=== PATIENT | female | born 1995 | race Caucasian/White ===

== ENCOUNTER 2020-07-10 08:26 | Emergency (ER) | payer BC ==
[2020-07-10] MEDS ORDERED: HYDROmorphone 0.5 MG/0.5 ML Syringe IVPUSH ONE (09:31)
[2020-07-10] MEDS ORDERED: Ondansetron 4 MG/2 ML SDV IVPUSH ONE (09:31)
[2020-07-10] MEDS ORDERED: Sodium Chloride 0.9% 10 ML Syringe FLUSH PRN (09:31)
--- NOTE | 2020-07-10 09:33 | EDM.PDOC ---
ED HPI GENERAL MEDICAL PROBLEM - General Chief Complaint: Abdominal Pain Stated Complaint: ABDOMINAL AND BACK PAIN Time Seen by Provider: 07/10/20 09:30 Source of Information: Reports: Patient History Limitations: Reports: No Limitations - History of Present Illness INITIAL COMMENTS - FREE TEXT/NARRATIVE: 25-year-old female evaluated in the ED in regards to gradually worsening low back pain for the last 6 or 8 months. No known injuries. Pain is constant and not improved at all with Tylenol or Motrin. 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 She was identified as having a urinary tract infection but pelvic ultrasound revealed normal placement of her IUD and a very small cyst in the le ft ovary. FOSTER CARE CASE MANAGER did not feel that her gynecological organs were causing any of her low back pain. Currently pain is rating down both buttocks into the posterior legs but not necessarily below the knees. She will occasionally get transient numbness or tingling in her feet but again lasts only 20 to 30 seconds. Pain is worse with standing fully erect. Again no known injuries at any time in her lifetime. Onset: Gradual, Other Duration: Chronic (Gradually worsening pain in lower back for about 6 to 8 months.), Getting Worse Location: Reports: Back Quality: Reports: Ache, Pressure, Throbbing Severity: Moderate Improves with: Reports: Rest (7-8 out of 10.) Worsens with: Reports: Other Context: Denies: Activity, Exercise (Worse with walking and standing in 1 position for too long.), Lifting, Sick Contact, Trauma, Other Associated Symptoms: Denies: No Other Symptoms, Confusion, Chest Pain, Cough, cough w sputum, Diaphoresis, Fever/Chills, Headaches, Loss of Appetite, Malaise, Nausea/Vomiting, Rash, Seizure, Shortness of Breath, Syncope, Weakness Treatments DYE MAKER: Reports: Acetaminophen, NSAIDS (Ultram.) Abdomen Pain Score (Numeric/FACES): 4 Lower Back Pain Score (Numeric/FACES): 9 - Related Data Allergies Allergy/AdvReac Type Severity Reaction Status Date / Time No Known Allergies Allergy Verified 07/10/20 08:37 Home Meds: Home Meds Diclofenac Sodium [Voltaren] 75 mg PO BIDMEALS #16 tab.cr 07/10/20 [Rx] oxyCODONE HCl/Acetaminophen [Percocet 5-325 mg Tablet] 1 each PO Q6H PRN #12 tablet 07/10/20 [Rx] predniSONE [Prednisone] 20 mg PO ASDIRECTED #18 tablet 07/10/20 [Rx] Past Medical History Other FOSTER C[employer] CASE MANAGER History: ovarian cyst removed in 2017 Social & Family History - Tobacco Use Tobacco Use Status *Q: Never Tobacco User - Caffeine Use Caffeine Use: Reports: Coffee, Soda - Recreational Drug Use Recreational Drug Use: No - Living Situation & Occupation Living situation: Reports: Occupation: Employed Social History Comment: 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 She recognizes that her low back pain and SI joint pain has certainly worsened since she took on this job. ED ROS GENERAL - Review of Systems Review Of Systems: See Below Constitutional: Denies: Fever, Chills, Malaise, Weakness, Fatigue, Decreased Appetite, Weight Loss HEENT: Reports: No Symptoms Respiratory: Reports: No Symptoms Cardiovascular: Reports: No Symptoms Endocrine: Reports: Fatigue GI/Abdominal: Reports: Constipation (Occasional problems with constipation but lately bowels been working good.) : Reports: Frequency, Urgency, Other (Received a IM injection yesterday for urinary tract infection and is prescribed antibiotics for UTI.) Musculoskeletal: Reports: Back Pain Skin: Reports: No Symptoms (Use low lumbar back pain.) Neurological: Reports: No Symptoms Psychiatric: Reports: No Symptoms Hematologic/Lymphatic: Reports: No Symptoms Immunologic: Reports: No Symptoms ED EXAM,LOWER BACK PAIN/INJURY - Physical Exam Exam: See Below Exam Limited By: No Limitations General Appearance: Alert, WD/WN, Mild Distress, Other (Temperature is 36.3 with a heart rate of 92 and sinus respiratory Extina with O2 sats of 100% room air BP 115/58.) Eye Exam: Bilateral Eye: Normal Inspection (No scleral icterus or blepharal pallor.), PERRL GI/Abdominal: Normal Bowel Sounds, Soft, Non-Tender, No Organomegaly, No Distention, No Abnormal Bruit, No Mass, Pelvis Stable Back Exam: Other (Patient does have scoliosis of her spine. The thoracic curvature is concave to the left and the compensatory curve in the lumbar spine is concave to the right. Estimation of less than 15 degrees. She has severe pain on palpation of both sacroiliac joints) Extremities: Normal Inspection, Normal Range of Motion, Non-Tender, No Pedal Edema Neurological: Alert, Normal Mood/Affect, Normal Dorsiflexion, CN II-XII Intact, Normal Plantar Flexion, Normal Reflexes, No Motor/Sensory Deficits, Oriented x 3. No: Normal Gait DTR - Lower Extremities: 2+: Knee (R), Knee (L) Course - Vital Signs Last Recorded V/S: Last Vital Signs Temp 36.3 C 07/10/20 08:38 Pulse 85 07/10/20 10:08 Resp 16 07/10/20 08:38 BP 106/61 07/10/20 10:08 Pulse Ox 99 07/10/20 10:08 - Orders/Labs/Meds Orders: Active Orders 24 hr Category Date Time Status Peripheral IV Care [RC] . DIRECTED Care 07/10/20 09:31 Active Sodium Chloride 0.9% [Saline Flush] Med 07/10/20 09:31 Active 10 ml FLUSH ASDIRECTED PRN Peripheral IV Insertion Adult [OM.PC] Stat Oth 07/10/20 09:31 Ordered Medication Orders Sodium Chloride (Saline Flush) 10 ml FLUSH ASDIRECTED PRN PRN Reason: Keep Vein Open Last Admin: 07/10/20 10:02 Dose: 10 ml Documented by: GWEN Meds: Medications Generic Name Dose Route Start Last Admin Trade Name Freq PRN Reason Stop Dose Admin Sodium Chloride 10 ml 07/10/20 09:31 07/10/20 10:02 Saline Flush FLUSH 10 ml ASDIRECTED PRN Administration Keep Vein Open Discontinued Medications Generic Name Dose Route Start Last Admin Trade Name Freq PRN Reason Stop Dose Admin Hydromorphone HCl 0.5 mg 07/10/20 09:31 07/10/20 09:59 Dilaudid IVPUSH 07/10/20 09:32 0.5 mg ONETIME ONE Administration Ondansetron HCl 4 mg 07/10/20 09:31 07/10/20 09:59 Zofran IVPUSH 07/10/20 09:32 4 mg ONETIME ONE Administration - Radiology Interpretation Free Text/Narrative:: 25-year-old female presents to the ED for evaluation of gradually worsening lumbar spine pain over the last 6 to 8 months. No known injuries. Examination reveals no paraspinal muscle spasm. She has a compensatory curve in her spine from scoliosis concave to the right. Severe pain on palpation of both SI joints superiorly. Benign abdominal exam. Plan CT of the lumbar spine to be obtained. IV will be started and she will be given Dilaudid 0.5 mg IV with Zofran 4 mg IV for acute pain relief - Re-Assessments/Exams Free Text/Narrative Re-Assessment/Exam: 07/10/20 10:42 CT scan of her bar spine is now been performed without contrast. Images at T12-L1 level revealed a posterior disc preserved no central canal stenosis or neuroforaminal stenosis is seen. Similar findings were identified at the L1-2 level, L2-L3 level. At the L3-4 level mild diffuse posterior disc bulge is seen. No central canal stenosis or neuroforaminal stenosis is seen. At the L4-5 level very slight diffuse posterior disc bulge is noted. Neuroforamina are patent where the nerve roots exit. No central canal stenosis is appreciated. At the L5-S1 level physiologic posterior disc bulge is noted. No central canal stenosis or neuroforaminal stenosis is seen. No acute fractures appreciated. No abnormal subluxation is appreciated slight scoliosis is noted on the AP reconstructed views. Ununited transverse processes are noted at the L1 level which are believed to be a normal variant. 07/10/20 11:07 I have discussed the findings with the patient and advised that there are no obvious congenital abnormalities or herniated disks in her back to account for her current pain syndrome. Most of her pain appears to be coming from the sacroiliac joints. Her mother apparently has a lupus and fibromyalgia syndrome. She has been having bilateral knee pain as well. 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 She reports her back pain is certainly worsened since starting the job. I can bend the sole of her shoe easily indicating that improper shoe wear is certainly a component of her pain as well. She was advised to purchase shoes that have a high arch and that she cannot bend the sole of the shoe at all. In the meantime I am going to place her on Percocet tabs 5 325 mg ideally 1 tablet at bedtime to help sleep. She will be given 12 tablets. I am going to place her on prednisone 20 mg twice daily for 6 days and then once in the morning only for another 6 days to reduce the pain and inflammation in her SI joints. She will also be placed on Voltaren 75 mg twice daily morning and supper for the next 8 days. Departure - Departure Time of Disposition: 11:09 Disposition: Home, Self-Care 01 Condition: Fair Clinical Impression: Mechanical low back pain, Bilateral sacroiliitis - Discharge Information *PRESCRIPTION DRUG MONITORING PROGRAM REVIEWED*: Not Applicable *COPY OF PRESCRIPTION DRUG MONITORING REPORT IN PATIENT GREGOR: Not Applicable Prescriptions: oxyCODONE HCl/Acetaminophen [Percocet 5-325 mg Tablet] 1 each PO Q6H PRN #12 tablet PRN Reason: Lower back pain predniSONE [Prednisone] 20 mg PO ASDIRECTED #18 tablet Diclofenac Sodium [Voltaren] 75 mg PO BIDMEALS #16 tab.cr Referrals: PCP,None [Primary Care Provider] - Forms: ED Department Discharge, ED Return to Work/School Form Additional Instructions: Evaluation in the emergency room today in regards to gradually worsening low back pain radiating to both buttocks. Examination reveals very mild muscle spasm in your thoracolumbar spine. Most of the pain is coming from the sacroiliac joints which is where your pelvis joins onto your sacrum and your lower back. This would be aggravated by prolonged standing and walking on concrete floor which job demands. As we discussed appropriate shoewear is very important when walking on concrete floor for long periods of time. You need to purchase a shoe with a very hard sole that is not easily bendable and a high arch support which will help low back pain. CT scan of your lower back was done to rule out any congenital abnormalities which means abnormalities you were born with in your lower back and also to rule out any significant disc herniation none were found. Treatment is to be anti-inflammatory Voltaren 75 mg extended release twice daily 1 in the morning and 1 after supper daily for the next 8 days. Prednisone 20 mg in the morning with breakfast and 20 mg at suppertime for the next 6 days and then 1 tab in the morning only for another 6 days to relieve inflammation and pain. Percocet tabs 5/325 mg primarily to be used 1 tablet at bedtime which he takes a good hour to work to ease pain so that she can sleep. It could be taken throughout the day as long as you are not operating a motor vehicle. It will cause constipation. You may need MiraLAX powder 17 g daily to prevent constipation from occurring while on this medication. The history also suggest that your diffuse lobe abdominal pain is likely secondary to low-grade constipation. Staying on MiraLAX daily for 2 weeks may clear this problem up. If symptoms persist then follow-up with sculpture instructor is certainly advised. Sepsis Event Note (ED) - Evaluation Sepsis Screening Result: No Definite Risk - Focused Exam Vital Signs: Vital Signs Temp Pulse Resp BP Pulse Ox 07/10/20 10:08 85 106/61 99 07/10/20 08:38 36.3 C 92 16 115/58 L 100 - My Orders Last 24 Hours: My Active Orders 07/10/20 09:31 Peripheral IV Care [RC] . DIRECTED Sodium Chloride 0.9% [Saline Flush] 10 ml FLUSH ASDIRECTED PRN Peripheral IV Insertion Adult [OM.PC] Stat - Assessment/Plan Last 24 Hours: My Active Orders 07/10/20 09:31 Peripheral IV Care [RC] . DIRECTED Sodium Chloride 0.9% [Saline Flush] 10 ml FLUSH ASDIRECTED PRN Peripheral IV Insertion Adult [OM.PC] Stat
--- NOTE | 2020-07-10 10:26 | CT ---
CT lumbar spine Technique: Multiple axial sections were obtained from above the T12-L1 disc inferiorly through the L5-S1 disc. Reconstructed coronal and sagittal images were obtained. Findings: T12-L1: Posterior disc is preserved. No central canal stenosis or neural foraminal stenosis is seen. L1-2: Posterior disc is preserved. No central canal stenosis or neural foraminal stenosis is seen. L2-3: Posterior disc is preserved. No central canal stenosis or neural foraminal stenosis is seen. L3-4: Mild diffuse posterior disc bulge is seen. No central canal stenosis or neural foraminal stenosis is seen. L4-5: Very slight diffuse posterior disc bulge is noted. Neural foramina are patent where the nerve roots exit. No central canal stenosis is appreciated. L5-S1: Physiologic posterior disc bulge is noted. No central canal stenosis or neural foraminal stenosis is seen. No acute fracture is appreciated. No abnormal subluxation is appreciated. Slight scoliosis is noted on the AP reconstructed views. Ununited transverse processes are noted at L1 which are believed to be a normal variant. Impression: 1. Mild degenerative change as noted above. 2. Nothing acute is seen. Diagnostic code #2
== END 2020-07-10 11:45 | disposition home or self-care (01) ==
LOC: JD.ED 08:26
DX: M46.1 Sacroiliitis, not elsewhere classified (principal)
CPT/HCPCS: 72131; 96374; 96375; 99283; J1170; J2405; 99284

== ENCOUNTER 2020-10-06 22:22 | Emergency (ER) | payer BC ==
[2020-10-06] MEDS ORDERED: Penicillin V Potassium 500 MG Tab PO STA (23:13)
--- NOTE | 2020-10-06 23:19 | EDM.PDOC ---
ED HPI GENERAL MEDICAL PROBLEM - General Chief Complaint: ENT Problem Stated Complaint: TOOTH PAIN Time Seen by Provider: 10/06/20 22:45 Source of Information: Reports: Patient History Limitations: Reports: No Limitations - History of Present Illness INITIAL COMMENTS - FREE TEXT/NARRATIVE: Mrs. Humphrey is a very pleasant 25-year-old woman who now presents the ED with lower left dental pain. She states that the pain developed yesterday morning, 10/05/2020. Initially, it was relatively mild, but got worse overnight. She has been taking Tylenol and ibuprofen, which helped for a little while. Around 17:00 last evening, she developed a throbbing sensation in her left ear and face, and she feels like the left side of her face is swollen. No recent fever. No known dental injury. No prior similar symptoms. The patient states that she was able to make a dental appointment for this coming 10/10/2020, but none sooner than that. Here in the ED, the patient is found to be hemodynamically stable, afebrile, saturating 100% on room air. She appears to be somewhat uncomfortable, but in no acute distress. Prior to yesterday morning, the patient denies having a recent fever, chills, sore throat, ear pain, nasal or sinus congestion, cough, dyspnea, chest pain, palpitations, nausea, vomiting, constipation, diarrhea, abdominal pain, urinary symptoms, recent weight gain or weight loss, recent bloody bowel movements or black bowel movements, recent joint aches, headaches, or rashes. The patient's PCP is Dr. Radha Walter. 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 (See Below) (Ovarian cysts) - Past Surgical History Female Surgical History: Reports: Other (See Below) (Ovarian cystectomy 2017) Social & Family History - Tobacco Use Tobacco Use Status *Q: Never Tobacco User - Caffeine Use Caffeine Use: Reports: Coffee, Soda - Alcohol Use Alcohol Use History: Yes Alcohol Use Frequency: Socially - Recreational Drug Use Recreational Drug Use: No - Living Situation & Occupation Living situation: Reports: , with Spouse Occupation: Employed ([employer], [place]) ED ROS ENT - Review of Systems Review Of Systems: Comprehensive ROS is negative, except as noted in HPI. ED EXAM, ENT - Physical Exam Exam: See Below Exam Limited By: No Limitations General Appearance: Alert, WD/WN, No Apparent Distress Eye Exam: Bilateral Eye: EOMI, Normal Inspection Ears: Normal External Exam, Normal Canal, Hearing Grossly Normal, Normal TMs Nose: Normal Inspection, Normal Mucousa, No Blood Mouth/Throat: Normal Inspection, Normal Gums, Normal Lips, Normal Oropharynx, Normal Teeth, Other (The patient indicated pain to percussion of tooth #18, however, there is no visible abnormality to the tooth, and no surrounding gingival swelling or pointing) Head: Atraumatic, Normocephalic Neck: Normal Inspection, Supple, Non-Tender, Full Range of Motion. No: Lymphadenopathy (L), Lymphadenopathy (R) Course - Vital Signs Last Recorded V/S: Last Vital Signs Temp 36.2 C 10/06/20 22:40 Pulse 95 10/06/20 22:40 Resp 18 10/06/20 22:40 BP 112/75 10/06/20 22:40 Pulse Ox 100 10/06/20 22:40 - Orders/Labs/Meds Meds: Medications Discontinued Medications Generic Name Dose Route Start Last Admin Trade Name Margi PRN Reason Stop Dose Admin Penicillin V Potassium 500 mg 10/06/20 23:13 10/06/20 23:29 Penicillin V Potassium 500 Mg Tab PO 10/06/20 23:14 500 mg ONETIME STA Administration - Re-Assessments/Exams Free Text/Narrative Re-Assessment/Exam: 10/06/20 23:16 As above, the patient developed dentalgia of tooth #18 yesterday. Her tooth and surrounding gingiva appear to be normal. She feels that the left side of her face has become swollen, although I don't see it. Nevertheless, I will treat her for a dental infection with oral penicillin. She prefers a prescription home instead of via [facility]. I will also prescribe some Houston that she can take in addition to OTC ibuprofen. I cannot give her Houston now, as she drove herself here. She states that she already has an appointment to see a dentist this coming Tuesday. Departure - Departure Time of Disposition: 23:17 Disposition: Home, Self-Care 01 Condition: Good Clinical Impression: Dentalgia - Discharge Information *PRESCRIPTION DRUG MONITORING PROGRAM REVIEWED*: Not Applicable *COPY OF PRESCRIPTION DRUG MONITORING REPORT IN PATIENT GREGOR: Not Applicable Prescriptions: Acetaminophen/HYDROcodone [[place] 325-5 MG] 1 - 2 tab PO Q6H PRN #10 tablet PRN Reason: Pain (Severe 7-10) Penicillin V Potassium 1 tab PO Q6HR #40 tab Instructions: Acute Pain, Adult Referrals: Radha Broussard MD [Physician] - Forms: ED Department Discharge Additional Instructions: You were seen in the emergency room after developing lower left jaw pain that radiated to your left ear and face. Based on your history and physical examination, you may have an infection of tooth #18. You have been started on the antibiotic penicillin, and given a prescription for penicillin. Take 1 tablet of penicillin every 6 hours, as prescribed. Finish the entire prescription unless told otherwise by your dentist. For pain, we recommend you take [id number] ibuprofen, 3 tablets (600 mg) up to every 8 hours, with food, as needed for discomfort. You may also take 1 to 2 tablets of the prescription opioid pain reliever Houston, up to every 6 hours, as needed for pain not relieved by ibuprofen. If you take Houston, do not drive or operate heavy machinery for 12 hours afterwards. Houston may cause constipation, so consider taking a stool softener. Follow-up with your dentist at your previously scheduled appointment this coming 10/10/2020. If any other problems, please do not hesitate to return to the ER. Sepsis Event Note (ED) - Evaluation Sepsis Screening Result: No Definite Risk - Focused Exam Vital Signs: Vital Signs Temp Pulse Resp BP Pulse Ox 10/06/20 22:40 36.2 C 95 18 112/75 100
== END 2020-10-06 23:29 | disposition home or self-care (01) ==
LOC: JD.ED 22:22
DX: K08.89 Other specified disorders of teeth and supporting structures (principal)
CPT/HCPCS: 99282; A9270; 99283

== ENCOUNTER 2020-11-25 06:44 | Emergency (ER) | payer BC ==
[2020-11-25] MEDS ORDERED: Lidocaine 4% 1 each Patch TOP STA (07:41)
[2020-11-25] MEDS ORDERED: Ketorolac 30 MG/ML SDV IM ONE (07:41)
[2020-11-25] MEDS ORDERED: Cyclobenzaprine 10 MG Tab PO ONE (07:43)
--- NOTE | 2020-11-25 07:47 | EDM.PDOC ---
ED HPI GENERAL MEDICAL PROBLEM - General Chief Complaint: Back Pain or Injury Stated Complaint: BACK PAIN Time Seen by Provider: 11/25/20 07:03 Source of Information: Reports: Patient History Limitations: Reports: No Limitations - History of Present Illness INITIAL COMMENTS - FREE TEXT/NARRATIVE: 25 yo F with hx prior episodes of low back pain presents with low back pain. No injury. This flare started yesterday, no apparent provoking factor. Pain is in midline, low lumbar area, sharp, constant, worse with walking and lying flat. No radiation. No associated numbness or weakness. Similar to prior episodes. No fever/recent illness. She has been alternating ibuprofen/acetaminophen with some relief. No additional complaint. 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 - Past Surgical History Female Surgical History: Reports: Other (See Below) Social & Family History - Tobacco Use Tobacco Use Status *Q: Never Tobacco User - Caffeine Use Caffeine Use: Reports: Coffee, Soda - Living Situation & Occupation Living situation: Reports: , with Spouse Occupation: Employed ([employer]) ED ROS GENERAL - Review of Systems Review Of Systems: See Below Constitutional: Denies: Fever HEENT: Reports: No Symptoms Respiratory: Reports: No Symptoms Cardiovascular: Reports: No Symptoms Endocrine: Reports: No Symptoms GI/Abdominal: Reports: No Symptoms : Reports: No Symptoms Musculoskeletal: Reports: Back Pain Skin: Reports: No Symptoms Neurological: Reports: No Symptoms Psychiatric: Reports: No Symptoms Hematologic/Lymphatic: Reports: No Symptoms Immunologic: Reports: No Symptoms ED EXAM,LOWER BACK PAIN/INJURY - Physical Exam Exam: See Below Exam Limited By: No Limitations General Appearance: Alert, WD/WN, No Apparent Distress Eye Exam: Bilateral Eye: Normal Inspection Ears: Normal External Exam Nose: Normal Inspection Throat/Mouth: Normal Inspection, Normal Voice Head: Atraumatic, Normocephalic Neck: Normal Inspection, Supple, Non-Tender, Full Range of Motion Respiratory/Chest: No Respiratory Distress Cardiovascular: Normal Peripheral Pulses GI/Abdominal: No Distention Back Exam: Normal Inspection, Full Range of Motion, Vertebral Tenderness, Other (low lumbar midline TTP, no deformity/skin change, straight leg raise neg). No: CVA Tenderness (L), CVA Tenderness (R), Paraspinal Tenderness Extremities: Normal Inspection Neurological: Alert, Normal Mood/Affect, Normal Dorsiflexion, Normal Plantar Flexion, No Motor/Sensory Deficits, Oriented x 3 Psychiatric: Normal Affect, Normal Mood Skin Exam: Warm, Dry, Intact, Normal Color, No Rash Course - Vital Signs Last Recorded V/S: Last Vital Signs Temp 36.1 C 11/25/20 08:10 Pulse 68 11/25/20 08:10 Resp 16 11/25/20 08:10 BP 111/78 11/25/20 08:10 Pulse Ox 97 11/25/20 08:10 - Orders/Labs/Meds Meds: Medications Discontinued Medications Generic Name Dose Route Start Last Admin Trade Name Margi PRN Reason Stop Dose Admin Cyclobenzaprine HCl 10 mg 11/25/20 07:43 11/25/20 07:59 Cyclobenzaprine 10 Mg Tab PO 11/25/20 07:44 10 mg ONETIME ONE Administration Ketorolac Tromethamine 15 mg 11/25/20 07:41 11/25/20 08:00 Ketorolac 30 Mg/Ml Sdv IM 11/25/20 07:42 15 mg ONETIME ONE Administration Lidocaine 1 each 11/25/20 07:41 11/25/20 08:03 Lidocaine 4% 1 Each Patch TOP 11/25/20 07:42 1 each STAT STA Administration - Re-Assessments/Exams Free Text/Narrative Re-Assessment/Exam: 11/25/20 09:[address] lumbar spine during ED visit 07/20 which was mostly unremarkable, minimal disk bulge at one level. No indication for new imaging today. Pt states it's been recommended she be worked up for rheumatologic disease due to joint pains and musculoskeletal pains, but she doesn't have any systemic symptoms, labs not indicated today. She is comfortable appearing. Will dc on ibuprofen, cyclobenzaprine, lidocaine patch, encouraged close PCP f/u for referral for PT. Patient requests work note, provided. Departure - Departure Time of Disposition: 07:44 Disposition: Home, Self-Care 01 Clinical Impression: Low back pain Qualifiers: Chronicity: acute Back pain laterality: midline Sciatica presence: without sciatica Qualified Code(s): M54.5 - Low back pain - Discharge Information Prescriptions: Cyclobenzaprine [Flexeril] 5 mg PO TID PRN #15 tab PRN Reason: Muscle Spasm - Painful Ibuprofen 600 mg PO QID PRN #40 tablet PRN Reason: Pain Lidocaine/Transparent Dressing [Lidocaine 4% Kit] 1 each TP DAILY PRN #10 kit PRN Reason: Pain Instructions: Acute Back Pain, Adult Referrals: Radha Broussard MD [Primary Care Provider] - Forms: ED Department Discharge, ED Return to Work/School Form Additional Instructions: 1. Take ibuprofen and alternate doses with acetaminophen (tylenol) according to bottle instructions 2. Take cyclobenzaprine as prescribed for muscle spasm 3. Use topical lidocaine on area of greatest pain 4. Use heating pad on area of pain. 5. Follow up with your primary care provider to arrange physical therapy and further care 6. Return to the ED as needed for any new concerning symptoms or very severe pain Sepsis Event Note (ED) - Evaluation Sepsis Screening Result: No Definite Risk - Focused Exam Vital Signs: Vital Signs Temp Pulse Resp BP Pulse Ox 11/25/20 08:10 36.1 C 68 16 111/78 97 11/25/20 06:57 36.1 C 92 18 122/91 H 97
== END 2020-11-25 08:27 | disposition home or self-care (01) ==
LOC: JD.ED 06:44
DX: M54.5 Low back pain (principal)
CPT/HCPCS: 96372; 99283; A9270; J1885

== ENCOUNTER 2021-01-24 15:15 | Emergency (ER) | payer BC ==
[2021-01-24] MEDS ORDERED: Ketorolac 60 MG/2 ML SDV IM ONE (15:52)
[2021-01-24] MEDS ORDERED: Orphenadrine 100 MG Tab.ER PO ONE (15:52)
--- NOTE | 2021-01-24 15:56 | EDM.PDOC ---
ED HPI GENERAL MEDICAL PROBLEM - General Chief Complaint: Back Pain or Injury Stated Complaint: BACK PAIN Time Seen by Provider: 01/24/21 15:32 Source of Information: Reports: Patient, RN Notes Reviewed History Limitations: Reports: No Limitations - History of Present Illness INITIAL COMMENTS - FREE TEXT/NARRATIVE: Patient is a 26-year-old female presents to the ER for her lower back pain. States she has been having a chronic issue with this for a few months now. She has had no recent trauma to the area. States that there is kind of a sharp pain all the time, seems to worsen at times, and seems to get better. She has been using Tylenol and ibuprofen on an alternating basis, and did use a heating pad last night for management, has also been using lidocaine patches, and other topical medications with little relief. Primary care provider is Radha Walter. Notes she has had a few x-rays with no obvious abnormalities. But she has not had an MRI. 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 Patient denies any other sick-like symptoms, fever/chills, cough/shortness of breath, nausea/vomiting/diarrhea. Patient is denying any numbness or tingling to the distal extremities, she is denying any sort of saddle anesthesia, any sort of urinary or bowel incontinence. 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: Reports: Other (see below) Other 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: motrin about 1100 2 tabs Lower Back Pain Score (Numeric/FACES): 8 - Related Data Allergies Allergy/AdvReac Type Severity Reaction Status Date / Time No Known Allergies Allergy Verified 11/25/20 07:00 Home Meds: Home Meds Lidocaine/Transparent Dressing [Lidocaine 4% Kit] 1 each TP DAILY PRN #10 kit 11/25/20 [Rx] Naproxen [Naprosyn] 500 mg PO Q12HR #20 tab 01/24/21 [Rx] Orphenadrine [Norflex] 100 mg PO BID PRN #20 tab 01/24/21 [Rx] Past Medical History - Past Health History Medical/Surgical History: Denies Medical/Surgical History 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 2017 Musculoskeletal History: Reports: Back Pain, Chronic Neurological History: Reports: Migraines - Past Surgical History Female Surgical History: Reports: Other (See Below) Social & Family History - Tobacco Use Tobacco Use Status *Q: Never Tobacco User - Caffeine Use Caffeine Use: Reports: Coffee, Energy Drinks, Soda, Tea - Recreational Drug Use Recreational Drug Use: No - Living Situation & Occupation Living situation: Reports: , with Spouse Occupation: Employed ([employer], [place]) ED ROS GENERAL - Review of Systems Review Of Systems: Comprehensive ROS is negative, except as noted in HPI. ED EXAM,LOWER BACK PAIN/INJURY - Physical Exam Exam: See Below Exam Limited By: No Limitations General Appearance: Alert, WD/WN, No Apparent Distress Respiratory/Chest: No Respiratory Distress, Lungs Clear, Normal Breath Sounds, No Accessory Muscle Use, Chest Non-Tender Cardiovascular: Normal Peripheral Pulses, Regular Rate, Rhythm GI/Abdominal: Normal Bowel Sounds, Soft, Non-Tender, No Distention, No Mass Back Exam: Muscle Spasm (in lower back, pt is sitting with very straight back at this time.) Extremities: Normal Inspection, Normal Capillary Refill Neurological: Alert, Normal Mood/Affect, Normal Dorsiflexion, Normal Plantar Flexion, No Motor/Sensory Deficits Psychiatric: Normal Affect, Normal Mood Skin Exam: Warm, Dry, Intact, Normal Color, No Rash Course - Vital Signs Last Recorded V/S: Last Vital Signs Temp 97.2 F 01/24/21 15:36 Pulse 73 01/24/21 15:36 Resp 20 01/24/21 15:36 BP 109/71 01/24/21 15:36 Pulse Ox 98 01/24/21 15:36 - Orders/Labs/Meds Meds: Medications Discontinued Medications Generic Name Dose Route Start Last Admin Trade Name Margi PRN Reason Stop Dose Admin Ketorolac Tromethamine 60 mg 01/24/21 15:52 01/24/21 16:00 Ketorolac 60 Mg/2 Ml Sdv IM 01/24/21 15:53 60 mg ONETIME ONE Administration Orphenadrine Citrate 100 mg 01/24/21 15:52 01/24/21 15:59 Orphenadrine 100 Mg Tab.Er PO 01/24/21 15:53 100 mg ONETIME ONE Administration - Re-Assessments/Exams Free Text/Narrative Re-Assessment/Exam: 01/24/21 15:55 Patient presents to the ER for the evaluation of her low back pain, due to her having multiple x-rays in the past, and no precipitating trauma, x-rays would not be taken at today's visit. I did tell her that she should probably follow-up with her regular care provider for possible MRI, she verbalized understanding. We will go ahead and try IM Toradol and p.o. Norflex for initial management. 01/24/21 16:49 Patient states that she did get some relief in her pain and is ready to go home at this time, we will go ahead and start her on Naprosyn and Norflex for ongoing management. Departure - Departure Time of Disposition: 16:51 Disposition: Home, Self-Care 01 Condition: Good Clinical Impression: Low back pain Qualifiers: Chronicity: acute Back pain laterality: midline Sciatica presence: without sciatica Qualified Code(s): M54.5 - Low back pain - Discharge Information *PRESCRIPTION DRUG MONITORING PROGRAM REVIEWED*: No *COPY OF PRESCRIPTION DRUG MONITORING REPORT IN PATIENT GREGOR: No Instructions: Chronic Back Pain, [id number] Referrals: Radha Broussard MD [Primary Care Provider] - Forms: ED Department Discharge, ED Return to Work/School Form Additional Instructions: You were evaluated in the ER today for your ongoing back pain. You were given some medications in the ER, which seemed to help relieve some of your pain. Over the next few days recommend that you rest, relax and do some limited activity to see if this helps also relieve most of your back pain. You may continue to use ice/heat to the area for pain management purposes. You have been given 2 prescriptions for medication 1 will be Naprosyn a pain reliever, and one is Norflex, a muscle relaxer, dosing will be 1 tablet each 2 times a day. This medication was electronically sent to the [place] pharmacy located in the [facility] grocery store. Highly recommend you follow-up with your regular care provider, sometime this week, for the possibility of getting a lumbar MRI scheduled for ongoing management of your back pain. Do not hesitate to return to the ER at any time if symptoms should change or worsen. Sepsis Event Note (ED) - Focused Exam Vital Signs: Vital Signs Temp Pulse Resp BP Pulse Ox 01/24/21 15:36 97.2 F 73 20 109/71 98
== END 2021-01-24 17:05 | disposition home or self-care (01) ==
LOC: JD.ED 15:15
DX: M54.5 Low back pain (principal)
CPT/HCPCS: 96372; 99283; A9270; J1885

== ENCOUNTER 2021-03-06 09:50 | Emergency (ER) | payer BC ==
[2021-03-06] MEDS ORDERED: Famotidine 20 MG/2 ML SDV IVPUSH ONE (10:44)
[2021-03-06] MEDS ORDERED: Ondansetron 4 MG/2 ML SDV IVPUSH ONE (10:44)
--- NOTE | 2021-03-06 10:45 | EDM.PDOC ---
ED HPI GENERAL MEDICAL PROBLEM - General Chief Complaint: Abdominal Pain Stated Complaint: VOMITING Time Seen by Provider: 03/06/21 10:45 Source of Information: Reports: Patient History Limitations: Reports: No Limitations - History of Present Illness INITIAL COMMENTS - FREE TEXT/NARRATIVE: Patient is a 26-year-old female presenting with a chief complaint of vomiting, diarrhea and abdominal pain. Patient symptoms for days. Patient reports initially being able to keep down liquids but now is unable to keep down solids or liquids. Patient reports pain in her mid abdomen without radiation. Nothing seems to make symptoms better or worse. Patient reports the diarrhea is watery nonbloody. Reports increasing fatigue and lethargy. Patient denies any shortness of breath, cough, fevers. Patient is not vaccinated from Covid. Patient reports weekly Covid testing all of which has been negative recently. Patient is not using control and is sexually active. No vaginal discharge. Patient does report some spotting. No abdominal surgeries. No other complaints. 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 Musculoskeletal History: Reports: Back Pain, Chronic Neurological History: Reports: Migraines Psychiatric History: Reports: Anxiety, Depression Endocrine/Metabolic History: Reports: Other (See Below) Other Endocrine/Metabolic History: lupus - Past Surgical History Female Surgical History: Reports: Other (See Below) Social & Family History - Tobacco Use Tobacco Use Status *Q: Never Tobacco User Second Hand Smoke Exposure: No - Caffeine Use Caffeine Use: Reports: Coffee, Energy Drinks, Soda - Recreational Drug Use Recreational Drug Use: Yes Recreational Drug Type: Reports: Marijuana/Hashish - Living Situation & Occupation Living situation: Reports: , with Spouse Occupation: Employed ([employer], [place]) ED ROS GENERAL - Review of Systems Review Of Systems: See Below Free Text/Narrative/Comment: In addition to that documented in the HPI above, the additional ROS was obtained: Constitutional: Denies fevers or chills Eyes: Denies vision changes ENMT: Denies sore throat CV: Denies chest pain Resp: Denies SOB GI: Per HPI : Denies painful urination MSK: Denies recent trauma Skin: Denies new rashes Neuro: Denies new numbness or tingling or weakness Endocrine: Denies unexpected weight loss Heme: Denies bleeding disorders ED EXAM, GI/ABD - Physical Exam Exam: See Below Text/Narrative:: I have reviewed the triage vital signs Const: Well nourished, well developed, appears stated age Eyes: Pupils Equal and reactive to light bilaterally, no conjunctival injection HENT: No signs of trauma or swelling, Neck supple without meningismus CV: Regular Rate Rhythm, Warm, well-perfused extremities RESP: Unlabored respiratory effort GI: soft, non-tender, non-distended, no masses MSK: No gross deformities appreciated Skin: Warm, dry. 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 Sensation and motor function of extremities grossly intact. Psych: Appropriate mood and affect. Course - Vital Signs Last Recorded V/S: Last Vital Signs Temp 36.2 C 03/06/21 09:59 Pulse 89 03/06/21 09:59 Resp 18 03/06/21 09:59 BP 106/72 03/06/21 09:59 Pulse Ox 100 03/06/21 09:59 - Orders/Labs/Meds Labs: Laboratory Tests 03/06/21 03/06/21 03/06/21 Range/Units 10:05 10:05 10:05 WBC 7.30 (3.98-10.04) K/mm3 RBC 4.18 (3.98-5.22) M/mm3 Hgb 12.8 (11.2-15.7) gm/dl Hct 40.5 (34.1-44.9) % MCV 96.9 H (79.4-94.8) fl MCH 30.6 (25.6-32.2) pg MCHC 31.6 L (32.2-35.5) g/dl RDW Std Deviation 44.8 (36.4-46.3) fL Plt Count 357 (182-369) K/mm3 MPV 10.8 (9.4-12.3) fl Neut % (Auto) 62.2 (34.0-71.1) % Lymph % (Auto) 23.6 (19.3-51.7) % Bath % (Auto) 9.3 (4.7-12.5) % Eos % (Auto) 4.5 (0.7-5.8) Baso % (Auto) 0.3 (0.1-1.2) % Neut # (Auto) 4.54 (1.56-6.13) K/mm3 Lymph # (Auto) 1.72 (1.18-3.74) K/mm3 Bath # (Auto) 0.68 H (0.24-0.36) K/mm3 Eos # (Auto) 0.33 (0.04-0.36) K/mm3 Baso # (Auto) 0.02 (0.01-0.08) K/mm3 Sodium 141 (136-145) mEq/L Potassium 4.0 (3.5-5.1) mEq/L Chloride 106 (98-107) mEq/L Carbon Dioxide 26 (21-32) mEq/L Anion Gap 13.0 (5-15) BUN 15 (7-18) mg/dL Creatinine 0.7 (0.55-1.02) mg/dL Est Cr Clr Drug Dosing 107.01 mL/min Estimated GFR (MDRD) > 60 (>60) mL/min BUN/Creatinine Ratio 21.4 H (14-18) Glucose 80 (70-99) mg/dL Calcium 8.9 (8.5-10.1) mg/dL Total Bilirubin 0.2 (0.2-1.0) mg/dL AST 27 (15-37) U/L ALT 49 (14-59) U/L Alkaline Phosphatase 79 (46-116) U/L Total Protein 7.3 (6.4-8.2) g/dl Albumin 3.8 (3.4-5.0) g/dl Globulin 3.5 gm/dL Albumin/Globulin Ratio 1.1 (1-2) Lipase 79 (73-393) U/L Urine HCG, Qual (NEGATIVE) SARS-CoV-2 RNA (BETHANY) Negative (NEGATIVE) 03/06/21 Range/Units 10:30 WBC (3.98-10.04) K/mm3 RBC (3.98-5.22) M/mm3 Hgb (11.2-15.7) gm/dl Hct (34.1-44.9) % MCV (79.4-94.8) fl MCH (25.6-32.2) pg MCHC (32.2-35.5) g/dl RDW Std Deviation (36.4-46.3) fL Plt Count (182-369) K/mm3 MPV (9.4-12.3) fl Neut % (Auto) (34.0-71.1) % Lymph % (Auto) (19.3-51.7) % Bath % (Auto) (4.7-12.5) % Eos % (Auto) (0.7-5.8) Baso % (Auto) (0.1-1.2) % Neut # (Auto) (1.56-6.13) K/mm3 Lymph # (Auto) (1.18-3.74) K/mm3 Bath # (Auto) (0.24-0.36) K/mm3 Eos # (Auto) (0.04-0.36) K/mm3 Baso # (Auto) (0.01-0.08) K/mm3 Sodium (136-145) mEq/L Potassium (3.5-5.1) mEq/L Chloride (98-107) mEq/L Carbon Dioxide (21-32) mEq/L Anion Gap (5-15) BUN (7-18) mg/dL Creatinine (0.55-1.02) mg/dL Est Cr Clr Drug Dosing mL/min Estimated GFR (MDRD) (>60) mL/min BUN/Creatinine Ratio (14-18) Glucose (70-99) mg/dL Calcium (8.5-10.1) mg/dL Total Bilirubin (0.2-1.0) mg/dL AST (15-37) U/L ALT (14-59) U/L Alkaline Phosphatase (46-116) U/L Total Protein (6.4-8.2) g/dl Albumin (3.4-5.0) g/dl Globulin gm/dL Albumin/Globulin Ratio (1-2) Lipase (73-393) U/L Urine HCG, Qual Negative (NEGATIVE) SARS-CoV-2 RNA (BETHANY) (NEGATIVE) Meds: Medications Discontinued Medications Generic Name Dose Route Start Last Admin Trade Name Freq PRN Reason Stop Dose Admin Famotidine 20 mg 03/06/21 10:44 03/06/21 10:58 Famotidine 20 Mg/2 Ml Sdv IVPUSH 03/06/21 10:45 20 mg ONETIME ONE Administration Ondansetron HCl 4 mg 03/06/21 10:44 03/06/21 10:58 Ondansetron 4 Mg/2 Ml Sdv IVPUSH 03/06/21 10:45 4 mg ONETIME ONE Administration Departure - Departure Time of Disposition: 12:42 Disposition: Home, Self-Care 01 Clinical Impression: Gastroenteritis, Vomiting - Discharge Information *PRESCRIPTION DRUG MONITORING PROGRAM REVIEWED*: Not Applicable *COPY OF PRESCRIPTION DRUG MONITORING REPORT IN PATIENT GREGOR: Not Applicable Prescriptions: Ondansetron [Zofran ODT] 4 mg PO Q6H PRN #12 tab.dis PRN Reason: Nausea Instructions: Nausea and Vomiting, Adult Referrals: Radha Broussard MD [Primary Care Provider] - Forms: ED Department Discharge, ED Return to Work/School Form Sepsis Event Note (ED) - Focused Exam Vital Signs: Vital Signs Temp Pulse Resp BP Pulse Ox 03/06/21 09:59 36.2 C 89 18 106/72 100 - Assessment/Plan Assessment:: Patient 26 old female presenting to the emergency room with chief complaint of vomiting and diarrhea. Patient had unremarkable ER course. Vital signs remained stable while in the emergency room. Patient's abdominal exam was benign. Patient had Zofran and Pepcid with improvement of symptoms in the emergency room. Patient is tolerating p.o. at this time. Differential diagnosis considered for this patient include diverticulitis, appendicitis, ectopic , bowel obstruction, COVID-19. Laboratory studies were unremarkable. At this point, likely viral gastroenteritis. Patient be discharged with outpatient follow-up. Return precautions discussed as usual. Patient agrees with plan of care.
== END 2021-03-06 13:26 | disposition home or self-care (01) ==
LOC: JD.ED 09:50
DX: K52.9 Noninfective gastroenteritis and colitis, unspecified (principal); K21.9 Gastro-esophageal reflux disease without esophagitis; Z79.899 Other long term (current) drug therapy; Z20.822 Contact with and (suspected) exposure to COVID-19
CPT/HCPCS: 36415; 80053; 81025; 83690; 85025; 87635; 96374; 96375; 99284; J2405; J3490; U0002

== ENCOUNTER 2021-08-24 19:07 | Emergency (ER) | payer BC | END 2021-08-24 21:22 | disposition home or self-care (01) | LOC: JD.ED 19:07 | DX: S93.401A Sprain of unspecified ligament of right ankle, initial encounter (principal); K21.9 Gastro-esophageal reflux disease without esophagitis; Z79.899 Other long term (current) drug therapy; X50.1XXA Overexertion from prolonged static or awkward postures, initial encounter | CPT/HCPCS: 73610-26-RT; 73610-RT; 99283 ==

== ENCOUNTER 2022-04-18 14:05 | Emergency (ER) | payer BC ==
[2022-04-18] MEDS ORDERED: Metoclopramide 10 MG/2 ML SDV IVPUSH ONE (14:31)
[2022-04-18] MEDS ORDERED: diphenhydrAMINE 50 MG/ML SDV IVPUSH ONE (14:31)
[2022-04-18] MEDS ORDERED: Sodium Chloride 0.9% 1,000 ML IV ONE (14:31)
[2022-04-18] MEDS ORDERED: Sodium Chloride 0.9% 10 ML Syringe FLUSH PRN (14:31)
[2022-04-18] MEDS ORDERED: Ketorolac 30 MG/ML SDV IVPUSH ONE (14:31)
== END 2022-04-18 15:55 | disposition home or self-care (01) ==
LOC: JD.ED 14:05
DX: G43.909 Migraine, unspecified, not intractable, without status migrainosus (principal); K21.9 Gastro-esophageal reflux disease without esophagitis; Z79.899 Other long term (current) drug therapy
CPT/HCPCS: 96361; 96374; 96375; 99283; J1200; J1885; J2765; J7030

== ENCOUNTER 2022-11-01 13:48 | Emergency (ER) | payer BC | END 2022-11-01 17:12 | disposition home or self-care (01) | LOC: JD.ED 13:48 | DX: L03.116 Cellulitis of left lower limb (principal); S81.012A Laceration without foreign body, left knee, initial encounter; K21.9 Gastro-esophageal reflux disease without esophagitis; Z79.899 Other long term (current) drug therapy; W01.198A Fall on same level from slipping, tripping and stumbling with subsequent striking against other object, initial encounter | CPT/HCPCS: 73562-26-LT; 73562-LT; 99283 ==

== ENCOUNTER 2023-01-15 18:07 | Emergency (ER) | payer BC ==
[2023-01-15] MEDS ORDERED: Sodium Chloride 0.9% 10 ML Syringe FLUSH PRN (18:31)
[2023-01-15] MEDS ORDERED: Ketorolac 30 MG/ML SDV IVPUSH ONE (18:31)
[2023-01-15] MEDS ORDERED: Metoclopramide 10 MG/2 ML SDV IVPUSH ONE (18:31)
[2023-01-15] MEDS ORDERED: Sodium Chloride 0.9% 1,000 ML IV STA (18:31)
[2023-01-15] MEDS ORDERED: diphenhydrAMINE 50 MG/ML SDV IVPUSH ONE (18:31)
[2023-01-15 18:54] LABS: BASOPHILS ABSOLUTE AUTO 0.01 K/mm3 (0.01-0.08); BASOPHILS PERCENT AUTO 0.3 % (0.1-1.2); EOSINOPHILS ABSOLUTE AUTO 0.02 K/mm3 (0.04-0.36); EOSINOPHILS PERCENT AUTO 0.6 (0.7-5.8); HEMATOCRIT 41.3 % (34.1-44.9); HEMOGLOBIN 13.3 gm/dl (11.2-15.7); LYMPHOCYTES ABSOLUTE AUTO 0.37 K/mm3 (1.18-3.74); LYMPHOCYTES PERCENT AUTO 11.1 % (19.3-51.7); MEAN CORPUSCULAR HEMOGLOBIN 30.4 pg (25.6-32.2); MEAN CORPUSCULAR HGB CONC 32.2 g/dl (32.2-35.5); MEAN CORPUSCULAR VOLUME 94.5 fl (79.4-94.8); MEAN PLATELET VOLUME 10.6 fl (9.4-12.3); MONOCYTES ABSOLUTE AUTO 0.38 K/mm3 (0.24-0.36); MONOCYTES PERCENT AUTO 11.4 % (4.7-12.5); NEUTROPHILS ABSOLUTE AUTO 2.55 K/mm3 (1.56-6.13); NEUTROPHILS PERCENT AUTO 76.6 % (34.0-71.1); PLATELET COUNT,PLT 258 K/mm3 (182-369); RED BLOOD CELL COUNT 4.37 M/mm3 (3.98-5.22); WHITE BLOOD CELL COUNT,WBC 3.33 K/mm3 (3.98-10.04)
[2023-01-15] MEDS ORDERED: Famotidine 20 MG/2 ML SDV IVPUSH ONE (19:09)
[2023-01-15 19:15] LABS: A/G RATIO 0.9 (1-2); ALBUMIN 3.9 g/dl (3.4-5.0); ANION GAP 13.6 (5-15); BILIRUBIN TOTAL 0.1 mg/dL (0.2-1.0); BUN/CREATININE RATIO 16.7 (14-18); C-REACTIVE PROTEIN 3.1 mg/dL (<1.0); CALCIUM 8.8 mg/dL (8.5-10.1); CREATININE 0.9 mg/dL (0.55-1.02); EST CRCL DRUG DOSING (CG) 78.36 mL/min; POTASSIUM,K 3.6 mEq/L (3.5-5.1); PROTEIN TOTAL,TP 8.2 g/dl (6.4-8.2)
[2023-01-15] MEDS ORDERED: HYDROmorphone 0.5 MG/0.5 ML Syringe IVPUSH ONE (19:52)
[2023-01-15] MEDS ORDERED: Acetaminophen 325 MG Tab PO ONE (19:52)
== END 2023-01-15 20:28 | disposition home or self-care (01) ==
LOC: JD.ED 18:07
DX: U07.1 COVID-19 (principal); G43.909 Migraine, unspecified, not intractable, without status migrainosus; K21.9 Gastro-esophageal reflux disease without esophagitis; Z79.899 Other long term (current) drug therapy
CPT/HCPCS: 36415; 80053; 85025; 86140; 87635; 96361; 96374; 96375; 99284; A9270; J1170; J1200; J1885; J2765; J3490; J7030; U0002

== ENCOUNTER 2023-01-27 15:47 | Emergency (ER) | payer BC ==
[2023-01-27] MEDS ORDERED: Sodium Chloride 0.9% 1,000 ML IV ONE (16:21)
[2023-01-27] MEDS ORDERED: Sodium Chloride 0.9% 10 ML Syringe FLUSH PRN (16:21)
[2023-01-27] MEDS ORDERED: Ketorolac 30 MG/ML SDV IVPUSH ONE (16:21)
[2023-01-27] MEDS ORDERED: diphenhydrAMINE 50 MG/ML SDV IVPUSH ONE (16:21)
[2023-01-27] MEDS ORDERED: Metoclopramide 10 MG/2 ML SDV IVPUSH ONE (16:21)
== END 2023-01-27 18:05 | disposition home or self-care (01) ==
LOC: JD.ED 15:47 → SUPCPDRO 15:47 → JD.ED 18:05
DX: G44.209 Tension-type headache, unspecified, not intractable (principal); Z79.82 Long term (current) use of aspirin
CPT/HCPCS: 96361; 96374; 96375; 99283; J1200; J1885; J2765; J3490; J7030

== ENCOUNTER 2023-04-11 01:39 | Emergency (ER) | payer SELFPAY ==
[2023-04-11] MEDS ORDERED: Lactated Ringers 1,000 ML IV ONE (02:04)
[2023-04-11] MEDS ORDERED: Ondansetron 4 MG/2 ML SDV IVPUSH ONE ×2 (02:04→02:57)
[2023-04-11] MEDS ORDERED: Ondansetron 4 MG/2 ML SDV ONE (02:05)
[2023-04-11] MEDS ORDERED: Lactated Ringers 1,000 ML ONE (02:05)
[2023-04-11] MEDS ORDERED: Lactated Ringers 1,000 ML IV SCH (02:15)
[2023-04-11 02:21] LABS: BASOPHILS PERCENT AUTO 0.2 % (0.0-1.0); EOSINOPHILS PERCENT AUTO 0.3 % (0.0-6.0); HEMATOCRIT 45.4 % (37.0-47.0); HEMOGLOBIN 15.4 gm/dl (12.0-16.0); IMMATURE GRAN ABSOLUTE AUTO 0.02 K/mm3 (0.00-0.05); IMMATURE GRAN PERCENT AUTO 0.2 % (0.0-0.4); LYMPHOCYTES ABSOLUTE AUTO 0.6 K/mm3 (1.0-4.8); MEAN CORPUSCULAR HGB CONC 33.9 g/dl (32.0-36.0); MEAN CORPUSCULAR VOLUME 94.4 fl (83.0-99.0); MEAN PLATELET VOLUME 9.9 fl (9.4-12.3); MONOCYTES ABSOLUTE AUTO 0.4 K/mm3 (0.0-0.8); MONOCYTES PERCENT AUTO 3.7 % (0.0-8.0); NEUTROPHILS ABSOLUTE AUTO 9.4 K/mm3 (1.8-7.7); NEUTROPHILS PERCENT AUTO 89.6 % (41.0-71.0); PLATELET COUNT,PLT 367 K/mm3 (150-400); RED BLOOD CELL COUNT 4.81 M/mm3 (4.10-5.30); WHITE BLOOD CELL COUNT,WBC 10.47 K/mm3 (3.9-11.3)
[2023-04-11 03:06] LABS: CORONAVIRUS COVID-19 NAA NEGATIVE (NEGATIVE); INFLUENZA A NAA NEGATIVE (NEGATIVE)
[2023-04-11 03:10] LABS: ALBUMIN 4.3 g/dl (3.4-5.0); BILIRUBIN TOTAL 0.4 mg/dL (0.2-1.0); BUN/CREATININE RATIO 22.2 (14-18); CALCIUM 9.1 mg/dL (8.5-10.1); CREATININE 0.9 mg/dL (0.55-1.02); EST CRCL DRUG DOSING (CG) 78.36 mL/min; PROTEIN TOTAL,TP 8.6 g/dl (6.4-8.2)
== END 2023-04-11 04:47 | disposition home or self-care (01) ==
LOC: JD.ED 01:39
DX: K52.9 Noninfective gastroenteritis and colitis, unspecified (principal); Z86.16 Personal history of COVID-19; Z20.822 Contact with and (suspected) exposure to COVID-19
CPT/HCPCS: 0240U; 36415; 80053; 83690; 84703; 85025; 96361; 96374; 96376; 99284; J2405; J7120

== ENCOUNTER 2023-06-06 20:04 | Emergency (ER) | payer BC | END 2023-06-06 22:20 | disposition home or self-care (01) | LOC: JD.ED 20:04 | DX: O99.891 Other specified diseases and conditions complicating pregnancy (principal); R10.31 Right lower quadrant pain; M54.50 Low back pain, unspecified; Z79.82 Long term (current) use of aspirin; Z86.16 Personal history of COVID-19; Z3A.01 Less than 8 weeks gestation of pregnancy | CPT/HCPCS: 36415; 76817; 76817-26; 84702; 99281; 99284 ==

== ENCOUNTER 2024-01-27 05:52 | Inpatient (IN) | payer MEDICAID ==
[~2024-01-27 05:52] MED LIST: Bupivacaine 0.25% 10 ML SDV ONE; Lidocaine 2% with EPINEPHrine 1:200,000 20 ML SDV ONE
[2024-01-27] MEDS ORDERED: Lidocaine 1% 50 ML MDV INJECT PRN (19:20)
[2024-01-27] MEDS ORDERED: Ondansetron 4 MG/2 ML SDV IVPUSH PRN (19:20)
[2024-01-27] MEDS ORDERED: Calcium Carbonate 500 MG Tab.Chew PO PRN (19:20)
[2024-01-27] MEDS ORDERED: Sodium Chloride 0.9% 10 ML Syringe FLUSH PRN (19:20)
[2024-01-27] MEDS ORDERED: Oxytocin/0.9 % Sodium Chloride 30 UNIT/500 ML BAG IV SCH (19:30)
[2024-01-27 19:38] LABS: BASOPHILS PERCENT AUTO 0.3 % (0.0-1.0); EOSINOPHILS ABSOLUTE AUTO 0.1 K/mm3 (0.0-0.4); EOSINOPHILS PERCENT AUTO 0.6 % (0.0-6.0); HEMATOCRIT 33.3 % (37.0-47.0); HEMOGLOBIN 10.8 gm/dl (12.0-16.0); IMMATURE GRAN ABSOLUTE AUTO 0.03 K/mm3 (0.00-0.05); IMMATURE GRAN PERCENT AUTO 0.4 % (0.0-0.4); LYMPHOCYTES ABSOLUTE AUTO 1.7 K/mm3 (1.0-4.8); LYMPHOCYTES PERCENT AUTO 21.1 % (24.0-44.0); MEAN CORPUSCULAR HEMOGLOBIN 29.5 pg (28.0-32.0); MEAN CORPUSCULAR HGB CONC 32.4 g/dl (32.0-36.0); MONOCYTES ABSOLUTE AUTO 0.9 K/mm3 (0.0-0.8); MONOCYTES PERCENT AUTO 10.8 % (0.0-8.0); NEUTROPHILS ABSOLUTE AUTO 5.3 K/mm3 (1.8-7.7); NEUTROPHILS PERCENT AUTO 66.8 % (41.0-71.0); PLATELET COUNT,PLT 301 K/mm3 (150-400); RED BLOOD CELL COUNT 3.66 M/mm3 (4.10-5.30); WHITE BLOOD CELL COUNT,WBC 7.95 K/mm3 (3.9-11.3)
[2024-01-27] MEDS: Lactated Ringers 1,000 ML IV SCH (20:57)
[2024-01-27] MEDS: Ampicillin 2 GM in Sodium Chloride 0.9% 100 ML IV ONE (20:57)
[2024-01-27] MEDS ORDERED: Sodium Chloride 0.9% 10 ML Syringe FLUSH SCH (21:00)
[2024-01-27] MEDS: Misoprostol 25 MCG (1/4 of 100 MCG) Tab VAG PRN (21:04)
[2024-01-28] MEDS: Ampicillin 1 GM in Sodium Chloride 0.9% 100 ML IV SCH (00:59)
[2024-01-28] MEDS ORDERED: diphenhydrAMINE 50 MG/ML SDV IVPUSH PRN (02:23)
[2024-01-28] MEDS ORDERED: fentaNYL 100 MCG/2 ML SDV EPIDUR PRN (02:23)
[2024-01-28] MEDS ORDERED: ePHEDrine 50 MG/ML SDV IVPUSH PRN (02:23)
[2024-01-28] MEDS: Bupivacaine/fentaNYL/NS 100 ML Bag EPIDUR PRN (02:28)
[2024-01-28] MEDS: Oxytocin/0.9 % Sodium Chloride 30 UNIT/500 ML BAG IV SCH (03:15)
[2024-01-28] MEDS ORDERED: Hydrocortisone Acetate 25 MG Supp RECTAL PRN (07:50)
[2024-01-28] MEDS ORDERED: Oxytocin/Lactated Ringers 30 UNIT/500 ML BAG IV SCH (07:50)
[2024-01-28] MEDS: Witch Hazel Medicated Pads 40/Jar TOP PRN (07:57)
[2024-01-28] MEDS: Benzocaine/Menthol 20%-0.5% Spray 78 GM Cannister TOP PRN (07:58)
[2024-01-28] MEDS: Prenatal Multivitamin with Calcium/Folic Acid/Iron Tab PO SCH (09:13)
[2024-01-28] MEDS: Ibuprofen 600 MG Tab PO SCH (09:13)
[2024-01-28] MEDS: Acetaminophen 325 MG Tab PO PRN (11:08)
[2024-01-28] MEDS: Enoxaparin 40 MG/0.4 ML Syringe SUBCUT ONE (13:01)
[2024-01-29 05:59] LABS: BASOPHILS PERCENT AUTO 0.3 % (0.0-1.0); EOSINOPHILS ABSOLUTE AUTO 0.1 K/mm3 (0.0-0.4); EOSINOPHILS PERCENT AUTO 0.8 % (0.0-6.0); HEMATOCRIT 33.3 % (37.0-47.0); HEMOGLOBIN 10.5 gm/dl (12.0-16.0); IMMATURE GRAN ABSOLUTE AUTO 0.01 K/mm3 (0.00-0.05); IMMATURE GRAN PERCENT AUTO 0.1 % (0.0-0.4); LYMPHOCYTES ABSOLUTE AUTO 2.2 K/mm3 (1.0-4.8); LYMPHOCYTES PERCENT AUTO 27.1 % (24.0-44.0); MEAN CORPUSCULAR HEMOGLOBIN 29.1 pg (28.0-32.0); MEAN CORPUSCULAR HGB CONC 31.5 g/dl (32.0-36.0); MEAN CORPUSCULAR VOLUME 92.2 fl (83.0-99.0); MEAN PLATELET VOLUME 10.9 fl (9.4-12.3); MONOCYTES ABSOLUTE AUTO 0.7 K/mm3 (0.0-0.8); MONOCYTES PERCENT AUTO 8.5 % (0.0-8.0); NEUTROPHILS ABSOLUTE AUTO 5.1 K/mm3 (1.8-7.7); NEUTROPHILS PERCENT AUTO 63.2 % (41.0-71.0); PLATELET COUNT,PLT 276 K/mm3 (150-400); RED BLOOD CELL COUNT 3.61 M/mm3 (4.10-5.30)
[2024-01-29] MEDS: Enoxaparin 40 MG/0.4 ML Syringe SUBCUT ONE (15:03)
[2024-01-30] MEDS ORDERED: Ibuprofen 600 MG Tab PO SCH (12:00)
== END 2024-01-30 11:41 | disposition home or self-care (01) | DRG 806 ==
LOC: JD.OB 05:52 → OBSVTOIN 01-28 05:52 → JD.OB 01-28 05:53
PROVIDERS: ADMIT Obstetrics & Gynecology; ATTEND Obstetrics & Gynecology
PROC: 10E0XZZ Delivery of Products of Conception, External Approach (ICD-10-PCS; principal; 2024-01-28)
PROC: 0KQM0ZZ Repair Perineum Muscle, Open Approach (ICD-10-PCS; 2024-01-28)
PROC: 0U7C7ZZ Dilation of Cervix, Via Natural or Artificial Opening (ICD-10-PCS; 2024-01-28)
PROC: 3E0P7VZ Introduction of Hormone into Female Reproductive, Via Natural or Artificial Opening (ICD-10-PCS; 2024-01-28)
PROC: 10907ZC Drainage of Amniotic Fluid, Therapeutic from Products of Conception, Via Natural or Artificial Opening (ICD-10-PCS; 2024-01-28)
PROC: 3E0R3BZ Introduction of Anesthetic Agent into Spinal Canal, Percutaneous Approach (ICD-10-PCS; 2024-01-28)
PROC: 00HU33Z Insertion of Infusion Device into Spinal Canal, Percutaneous Approach (ICD-10-PCS; 2024-01-28)
DX: O24.420 Gestational diabetes mellitus in childbirth, diet controlled (principal); D68.62 Lupus anticoagulant syndrome; Z37.0 Single live birth; O99.113 Other diseases of the blood and blood-forming organs and certain disorders involving the immune mechanism complicating pregnancy, third trimester; O99.824 Streptococcus B carrier state complicating childbirth; O99.344 Other mental disorders complicating childbirth; F41.9 Anxiety disorder, unspecified; O36.5930 Maternal care for other known or suspected poor fetal growth, third trimester, not applicable or unspecified; O70.1 Second degree perineal laceration during delivery; Z3A.38 38 weeks gestation of pregnancy; Z79.82 Long term (current) use of aspirin; Z79.01 Long term (current) use of anticoagulants; Z86.16 Personal history of COVID-19; Z98.890 Other specified postprocedural states
CPT/HCPCS: 01967; 36415; 51702; 59025; 59409; 82947; 85025; 86592; 86850; 86900; 86901; A9270-GY; C1726; J0290; J0665; J1650; J3490; J7120; J7999